=== PATIENT | female | born 1975 | race Caucasian/White ===

== ENCOUNTER 2019-03-20 21:13 | Observation (INO) | payer OTHER ==
[2019-03-20] MEDS ORDERED: SODIUM CHLORIDE 0.9% 1,000 ML IV STA (21:22)
--- NOTE | 2019-03-20 21:23 | ED ---
Chest Pain HPI - General Chief Complaint: Chest Pain Stated Complaint: chest pain Time Seen by Provider: 03/20/19 21:22 Source: patient, RN notes reviewed, old records reviewed Mode of arrival: ambulatory Limitations: no limitations - History of Present Illness Initial Comments: This is a 43-year-old female here for evaluation she herself is no medical history is a nonsmoker, no chest pain chest pain throughout the course of the day left-sided rating to her back severe and tingling down both arms. Patient has strong family history of heart disease with particularly on the age of both her parents. Patient denying any shortness of breath diaphoresis. No other sniffing complaints, physical recent travel history to the [facility]. MD Complaint: chest pain -: hour(s) Onset: during rest, during exertion Pain Location: left chest Pain Radiation: back Severity: moderate Severity scale (1-10): 4 Quality: sharp Consistency: constant Improves With: nothing Worsens With: nothing Anginal Symptoms: nausea, vomiting Treatments Prior to Arrival: none - Related Data Home Medications Medication Instructions Recorded Confirmed DULoxetine HCL [Cymbalta] 60 mg PO HS 11/29/14 11/29/14 Norethindrone-E.estradiol-Iron 1 tab PO DAILY 11/29/14 11/29/14 [Loestrin Fe 1.5-30 Tablet] Omeprazole [PriLOSEC] 1 PO HS 11/29/14 11/29/14 Pramipexole [Mirapex] 0.5 mg PO HS 11/29/14 11/29/14 Previous Rx's Medication Instructions Recorded HYDROcodone/APAP 5-325MG [[place] 5] 1 - 2 each PO Q6HR PRN #20 tab 11/30/14 Allergies Allergy/AdvReac Type Severity Reaction Status Date / Time morphine Allergy Unknown Verified 03/20/19 21:19 Review of Systems ROS Statement: Those systems with pertinent positive or pertinent negative responses have been documented in the HPI. ROS Other: All systems not noted in ROS Statement are negative. EKG Findings - EKG Comments: EKG Findings:: EKG shows sinus tachycardia rate of 109, NH 160, NH 84, QRS 449 Past Medical History Past Medical History: No Reported History, Seizure Disorder Additional Past Medical History / Comment(s): TWENTY THREE YEARS AGO, DUING History of Any Multi-Drug Resistant Organisms: None Reported Past Surgical History: No Surgical Hx Reported, Tonsillectomy Additional Past Surgical History / Comment(s): KIDNEY STONES Past Anesthesia/Blood Transfusion Reactions: Motion Sickness, Postoperative Nausea & Vomiting (PONV) Past Psychological History: No Psychological Hx Reported Smoking Status: Never smoker Past Alcohol Use History: Occasional Past Drug Use History: None Reported - Past Family History Mother Family Medical History: Coronary Artery Disease (CAD), Deep Vein Thrombosis (DVT), Hypertension, Myocardial Infarction (ND) General Exam Limitations: no limitations General appearance: alert, in no apparent distress, anxious Head exam: Present: atraumatic, normocephalic, normal inspection Eye exam: Present: normal appearance, PERRL, EOMI. Absent: scleral icterus, conjunctival injection, periorbital swelling ENT exam: Present: normal exam, mucous membranes moist Neck exam: Present: normal inspection. Absent: tenderness, meningismus, lymphadenopathy Respiratory exam: Present: normal lung sounds bilaterally. Absent: respiratory distress, wheezes, rales, rhonchi, stridor Cardiovascular Exam: Present: normal rhythm, tachycardia, normal heart sounds. Absent: systolic murmur, diastolic murmur, rubs, gallop, clicks GI/Abdominal exam: Present: soft, normal bowel sounds. Absent: distended, tenderness, guarding, rebound, rigid Extremities exam: Present: normal inspection, full ROM, normal capillary refill. Absent: tenderness, pedal edema, joint swelling, calf tenderness Back exam: Present: normal inspection Neurological exam: Present: alert, oriented X3, CN II-XII intact Psychiatric exam: Present: normal affect, normal mood Skin exam: Present: warm, dry, intact, normal color. Absent: rash Course Vital Signs 03/20/19 03/20/19 21:17 22:19 Temperature 98.8 F Pulse Rate 105 H 101 H Respiratory 20 20 Rate Blood Pressure 154/93 102/88 O2 Sat by Pulse 96 98 Oximetry - Reevaluation(s) Reevaluation #1: 03/20/19 23:01 Medical records reviewed Reevaluation #2: 03/20/19 23:01 Still chest pain currently - Consultations Consultation #1: Spoke with Dr. Carrillo, agreeable for evaluation Chest Pain MDM - MDM 43 female to the ED w CP , persistent chest pain here in the ER requiring Dilaudid. Strong family history of heart disease with mother with ND at age 38. No prior cardiac evaluation patient be admitted for cardiac evaluation and treatment, CT is negative for PE Critical Care Time Critical Care Time: Yes Total Critical Care Time: 31 Disposition Clinical Impression: Chest pain Disposition: ADMITTED IP TO THIS HOSP Condition: Undetermined Instructions (If sedation given, give patient instructions): Chest Pain (ED) Is patient prescribed a controlled substance at d/c from ED?: No Referrals: Nonstaff,Physician [Primary Care Provider] - 1-2 days
[2019-03-20 21:49] LABS: Basophils % (A) 0 %; Eosinophils # (A) 0.2 k/uL (0-0.7); Eosinophils % (A) 1 %; HCT 40.2 % (34.0-46.0); Lymphocytes # (A) 2.8 k/uL (1.0-4.8); Lymphocytes % (A) 18 %; MCH 26.7 pg (25.0-35.0); MCHC 32.2 g/dL (31.0-37.0); MCV 82.8 fL (80.0-100.0); Mean Platelet Volume 6.5; Monocytes # (A) 0.6 k/uL (0-1.0); Monocytes % (A) 4 %; Neutrophils # (A) 11.2 k/uL (1.3-7.7); Neutrophils % (A) 74 %; Platelet Count 269 k/uL (150-450); RBC 4.86 m/uL (3.80-5.40); RDW 14.5 % (11.5-15.5); WBC 15.2 k/uL (3.8-10.6)
[2019-03-20 22:03] LABS: D-Dimer 0.42 mg/L FEU (<0.60); INR 0.9 (<1.2); Partial Thromboplastin Time 23.4 sec (22.0-30.0); Prothrombin Time 9.4 sec (9.0-12.0)
[2019-03-20 22:04] LABS: ALT 24 U/L (9-52); AST 18 U/L (14-36); African American GFR (CKD) >90 (>60 ml/min/1.73 sqM); Albumin 4.3 g/dL (3.5-5.0); Alkaline Phosphatase 92 U/L (38-126); Anion Gap 7 mmol/L; Blood Urea Nitrogen 16 mg/dL (7-17); Calcium 10.9 mg/dL (8.4-10.2); Carbon Dioxide 30 mmol/L (22-30); Chloride 101 mmol/L (98-107); Creatine Kinase 32 U/L (30-135); Glucose 122 mg/dL (74-99); Magnesium 1.9 mg/dL (1.6-2.3); Non-African American GFR(CKD) >90 (>60 ml/min/1.73 sqM); Potassium 4.5 mmol/L (3.5-5.1); Sodium 138 mmol/L (137-145); Total Bilirubin 0.4 mg/dL (0.2-1.3); Total Protein 7.2 g/dL (6.3-8.2)
--- NOTE | 2019-03-20 22:30 | CT ---
EXAMINATION TYPE: CT angio chest DATE OF EXAM: 03/20/2019 COMPARISON: None HISTORY: chest pain radiating posteriorly and into both arms. CT DLP: 574.8 mGycm Automated exposure control for dose reduction was used. CONTRAST: Performed with IV Contrast, patient injected with 100 mL of Isovue 370. Multiple axial sections were obtained from the thoracic inlet to the diaphragm with intravenous contr ast. There are 3-D post processed images. FINDINGS: There is no pleural effusion. There is no pericardial effusion. Heart size is normal. The lungs are c lear of infiltrate. There is no evidence of a pulmonary mass. There is no mediastinal adenopathy. There are no hilar masses. There is normal contrast opacification of the pulmonary arteries. There are no filling defects. Thoracic aorta is intact. There is no sign of aneurysm or dissection. Ascending aorta measures 3.3 cm. The bony thorax is intact. IMPRESSION: Normal exam. No evidence of pulmonary embolism.
[2019-03-20] MEDS ORDERED: ASPIRIN 81 MG PO STA (22:58)
[2019-03-20] MEDS ORDERED: HEPARIN SODIUM,PORCINE 5,000 UNIT/ML 1 ML VIAL IV ONE (22:58)
[2019-03-20] MEDS ORDERED: HEPARIN SODIUM,PORCINE 5,000 UNIT/ML 1 ML VIAL IV PRN (22:58)
[2019-03-20] MEDS ORDERED: HEPARIN SOD,PORK IN 0.45% NACL 25,000 UNIT in 0.45% NACL 1 250ML.BAG IV SCH (23:00)
[2019-03-20] MEDS ORDERED: SODIUM CHLORIDE 0.9% 1,000 ML IV SCH (23:00)
[2019-03-20] MEDS: NITROGLYCERIN SL TABS 0.4 MG TAB SUBLINGUAL PRN ×3 (23:20→23:39)
[2019-03-21 00:12] VITALS: RESP 18
[2019-03-21] MEDS ORDERED: KETOROLAC 30 MG/ML 1 ML VIAL IVP STA (00:33)
[2019-03-21] MEDS ORDERED: MAG HYDROX/AL HYDROX/SIMETH 30 ML CUP PO PRN (02:23)
[2019-03-21] MEDS ORDERED: ALPRAZolam 0.5 MG TAB PO STA (02:23)
--- NOTE | 2019-03-21 02:31 | P.HPIM ---
History of Present Illness H&P Date: 03/21/19 Chief Complaint: chest pain 43-year-old female with history of GERD Patient comes in today with 1 day history of chest pain started this morning she does not recall any precipitating factor. Described it as central chest pain sharp in nature and radiates straight to the back between her shoulder blades associated with some nausea and slight palpitations but no vomiting no shortness of breath no fevers no chills no sweating this has never happened before she denies any precipitating or aggravating factors she described the pain as sharp 9 out of 10 in severity and now is down to 5 out of 10 in severity this has never happened before. Patient reports some coughing that's chronic in nature been going on for 4 months now. She reports long history of GERD she had multiple EGDs and colonoscopy in the past no significant abnormalities she reports history of polyp. She reports strong history of premature CAD in her family and in the ED CT image of the chest was performed and was negative for any PE EKG showed sinus tachycardia Slightly elevated white count Review of Systems Pertinent positives as noted in HPI. All other systems were reviewed and are negative Past Medical History Past Medical History: Seizure Disorder Additional Past Medical History / Comment(s): TWENTY THREE YEARS AGO, DUING History of Any Multi-Drug Resistant Organisms: None Reported Past Surgical History: Cholecystectomy, Tonsillectomy Additional Past Surgical History / Comment(s): KIDNEY STONES Past Anesthesia/Blood Transfusion Reactions: Motion Sickness, Postoperative Nausea & Vomiting (PONV) Smoking Status: Never smoker - Past Family History Father Family Medical History: Myocardial Infarction ([place]) Additional Family Medical History / Comment(s): Sepsis Sister(s) Family Medical History: Congestive Heart Failure (CHF) Brother(s) Family Medical History: Myocardial Infarction ([place]) Mother Family Medical History: Coronary Artery Disease (CAD), Diabetes Mellitus, Deep Vein Thrombosis (DVT), Hypertension, Myocardial Infarction ([place]) Additional Family Medical History / Comment(s): Heart disease since 38 Medications and Allergies Home Medications Medication Instructions Recorded Confirmed Type Omeprazole [PriLOSEC] 20 mg PO HS 11/29/14 03/21/19 History Aspirin EC [Ecotrin] 325 mg PO DAILY PRN 03/20/19 03/21/19 History Norethindrone-E.estradiol-Iron 1 tab PO HS 03/20/19 03/21/19 History [Junel Fe 1 mg-20 Mcg Tablet] Pramipexole Di-HCl [Pramipexole ER] 1.5 mg PO HS 03/20/19 03/21/19 History buPROPion XL [Wellbutrin Xl] 300 mg PO DAILY 03/20/19 03/21/19 History Allergies Allergy/AdvReac Type Severity Reaction Status Date / Time morphine AdvReac Severe Nausea & Verified 03/21/19 00:09 Vomiting Physical Exam Vitals: Vital Signs Temp Pulse Pulse Resp BP BP Pulse Ox 03/21/19 00:00 98.3 F 102 H 18 150/93 96 03/20/19 23:45 98.7 F 99 20 134/72 99 03/20/19 23:39 92 20 150/74 99 03/20/19 23:26 94 20 133/80 99 03/20/19 22:19 101 H 20 102/88 98 03/20/19 21:17 98.8 F 105 H 20 154/93 96 Intake and Output 03/20/19 03/20/19 03/21/19 14:59 22:59 06:59 Other: # Voids 1 Weight 90.718 kg 90.718 kg Constitutional: No acute distress, conversant, pleasant Eyes: Anicteric sclerae, moist conjunctiva, no lid-lag Pupils equal round reactive to light ENMT: NC/AT Oropharynx clear, no erythema, exudates Neck: Supple, FROM, no masses, or JVD No carotid bruits No thyromegaly Lungs: Clear to auscultation Clear to percussion Normal respiratory effort, no accessory muscle use Cardiovascular: Heart regular in rate and rhythm, No murmurs, gallops, or rubs No peripheral edema Abdominal: Soft, slight epigastric discomfort with deep palpation , no guarding, rebound or rigidity Abdomen moving with respiration Normoactive bowel sounds No hepatomegaly, No splenomegaly No palpable mass No abdominal wall hernia noted Skin: Normal temperature, tone, texture, turgor No induration No subcutaneous nodules No rash, lesions No ulcers Extremities: No digital cyanosis No clubbing Pedal pulses intact and symmetrical Radial pulses intact and symmetrical No calf tenderness Psychiatric: Alert and oriented to person, place and time Appropriate affect fair judgment Neuro Muscles Strength 5/5 in all 4 extremities Sensation to light touch grossly present throughout Cranial nerves II-XII grossly intact No focal sensory deficits Lymphatics: no palpable cervical or supraclavicular , or inguinal lymph nodes Results CBC & Chem 7: 03/20/19 21:37 03/20/19 21:37 Labs: Abnormal Lab Results - Last 24 Hours (Table) 03/20/19 03/20/19 Range/Units 21:37 21:37 WBC 15.2 H (3.8-10.6) k/uL Neutrophils # 11.2 H (1.3-7.7) k/uL Glucose 122 H (74-99) mg/dL Calcium 10.9 H (8.4-10.2) mg/dL Thrombosis Risk Factor Assmnt - Choose All That Apply Each Factor Represents 1 point: Age 41-60 years Thrombosis Risk Factor Assessment Total Risk Factor Score: 1 Thrombosis Risk Factor Assessment Level: Low Risk Assessment and Plan Assessment: 43-year-old female with no significant past medical history and however with strong family history of premature CAD comes in with chest pain admitted under observation with anticipated length of stay less than 2 midnight to rule out acute coronary syndrome Plan: atypical chest pain rule out ACS nitro heparin gtt aspirin statin cardio consult trend cardiac enzymes cardiac tele GERD continue home meds maalox CODE STATUS:*Full code Discussed with: Patient, ER, RN Anticipated length of stay less than [address]: Home A total of 60 minutes was spent on the care of this complex patient more than 50% of the time was spent in counseling and care coordination.
[2019-03-21 06:01] LABS: Mean Platelet Volume 6.4; Platelet Count 221 k/uL (150-450)
[2019-03-21 06:12] LABS: Cholesterol 179 mg/dL (<200); HDL Cholesterol 36 mg/dL (40-60)
[2019-03-21 06:24] LABS: Triglycerides 845 mg/dL (<150)
[2019-03-21] MEDS ORDERED: PANTOPRAZOLE 40 MG TABLET PO SCH (07:30)
[2019-03-21 08:07] LABS: HCT 32.6 % (34.0-46.0); HGB 10.7 gm/dL (11.4-16.0); Hypochromasia Slight; MCH 27.5 pg (25.0-35.0); MCHC 32.9 g/dL (31.0-37.0); MCV 83.6 fL (80.0-100.0); Mean Platelet Volume 8.4; Platelet Count 221 k/uL (150-450); RDW 14.2 % (11.5-15.5); WBC 9.8 k/uL (3.8-10.6)
[2019-03-21 08:21] LABS: African American GFR (CKD) >90 (>60 ml/min/1.73 sqM); Anion Gap 7 mmol/L; Blood Urea Nitrogen 15 mg/dL (7-17); Calcium 9.6 mg/dL (8.4-10.2); Carbon Dioxide 26 mmol/L (22-30); Chloride 106 mmol/L (98-107); Glucose 110 mg/dL (74-99); Non-African American GFR(CKD) >90 (>60 ml/min/1.73 sqM); Potassium 4.2 mmol/L (3.5-5.1); Sodium 139 mmol/L (137-145)
[2019-03-21] MEDS ORDERED: ATORVASTATIN 80 MG TAB PO SCH (09:00)
[2019-03-21] MEDS ORDERED: METOPROLOL TARTRATE 25 MG TAB PO SCH (09:00)
[2019-03-21] MEDS ORDERED: ASPIRIN 325 MG TAB PO SCH (09:00)
[2019-03-21] MEDS ORDERED: buPROPion XL 300 MG TAB.ER.24H PO SCH (09:00)
--- NOTE | 2019-03-21 10:11 | P.CRDCN ---
History of Present Illness History of present illness: This is Dr. Lees dictating a consult on this patient The patient was interviewed and examined by me IMPRESSION / ASSESSMENT: Patient presented with chest discomfort lasting several hours with radiation through to the back with spontaneous resolution 2 normal cardiac enzymes Serial ECGs normal No evidence for pulmonary embolism thoracic aorta is intact without any sign of aneurysm or dissection and measures 3 x 3 cm, ascending portion Increased BMI Nondiabetic, no hypertension, denies dyslipidemia but triglycerides are 845 Glucose elevated Strong family history of premature coronary artery disease in the mother with coronary artery bypass grafting at age 38 but she was a heavy smoker Patient is a never smoker Triglycerides 845 PLAN: Consider cardiac enzymes if this is normal. Heparin Annulate in the hallways If patient is stable she may go home and follow-up with me next week HPI Patient woke up with chest discomfort which is fairly constant loss of several hours with normal cardiac enzymes normal ECGs Spontaneous resolution Nitroglycerin give her a headache ROS: No fever chills or rigors, no cough, phlegm or expectoration, no nausea, vomiting or diarrhea, no hematuria, dysuria, no musculoskeletal complaints, no strokes or seizures, no skin lesions. EXAMINATION: Blood pressure 117/67 mmHg respirations normal pulse rate in the 80s, afebrile Temperature 97.7F Normal breath sounds no rhonchi no crackles Breath sounds are clear no rhonchi no crackles Heart sounds are normal normal S1 normal S2 Extremities warm no edema Abdomen soft nontender REVIEW OF LABS, ECG & MEDICAL DATA hemoglobin 13 and then subsequently 10.7 2 normal cardiac enzymes, elevated triglyceride of 845 Past Medical History Past Medical History: Seizure Disorder Additional Past Medical History / Comment(s): TWENTY THREE YEARS AGO, DUING History of Any Multi-Drug Resistant Organisms: None Reported Past Surgical History: Cholecystectomy, Tonsillectomy Additional Past Surgical History / Comment(s): KIDNEY STONES Past Anesthesia/Blood Transfusion Reactions: Motion Sickness, Postoperative Nausea & Vomiting (PONV) Smoking Status: Never smoker - Past Family History Father Family Medical History: Myocardial Infarction ([place]) Additional Family Medical History / Comment(s): Sepsis Sister(s) Family Medical History: Congestive Heart Failure (CHF) Brother(s) Family Medical History: Myocardial Infarction ([place]) Mother Family Medical History: Coronary Artery Disease (CAD), Diabetes Mellitus, Deep Vein Thrombosis (DVT), Hypertension, Myocardial Infarction ([place]) Additional Family Medical History / Comment(s): Heart disease since 38 Medications and Allergies Home Medications Medication Instructions Recorded Confirmed Type Omeprazole [PriLOSEC] 20 mg PO HS 11/29/14 03/21/19 History Aspirin EC [Ecotrin] 325 mg PO DAILY PRN 03/20/19 03/21/19 History Norethindrone-E.estradiol-Iron 1 tab PO HS 03/20/19 03/21/19 History [Junel Fe 1 mg-20 Mcg Tablet] Pramipexole Di-HCl [Pramipexole ER] 1.5 mg PO HS 03/20/19 03/21/19 History buPROPion XL [Wellbutrin Xl] 300 mg PO DAILY 03/20/19 03/21/19 History Allergies Allergy/AdvReac Type Severity Reaction Status Date / Time morphine AdvReac Severe Nausea & Verified 03/21/19 00:09 Vomiting Physical Exam Vitals: Vital Signs Temp Pulse Pulse Resp BP BP Pulse Ox 03/21/19 08:00 85 18 03/21/19 07:10 97.7 F 85 18 108/71 95 03/21/19 04:00 98.3 F 87 18 117/67 93 L 03/21/19 03:12 18 03/21/19 00:00 98.3 F 102 H 18 150/93 96 03/20/19 23:45 98.7 F 99 20 134/72 99 03/20/19 23:39 92 20 150/74 99 03/20/19 23:26 94 20 133/80 99 03/20/19 22:19 101 H 20 102/88 98 03/20/19 21:17 98.8 F 105 H 20 154/93 96 Intake and Output 03/20/19 03/21/19 03/21/19 22:59 06:59 14:59 Intake Total 73.179 Balance 73.179 Intake: Intake, IV Titration 73.179 Amount Heparin Sod,Pork in 0.45% 73.179 NaCl 25,000 unit In 0.45 % NaCl 1 250ml.bag @ 11 UNITS/KG/HR 9.979 mls/hr IV .Q24H [facility] Rx#: [id number] Other: # Voids 1 Weight 90.718 kg 90.718 kg Results 03/21/19 05:41 03/21/19 05:37 Cardiac Enzymes 03/20/19 03/20/19 03/21/19 Range/Units 21:37 21:37 03:57 AST 18 (14-36) U/L Troponin I <0.012 <0.012 (0.000-0.034) ng/mL Coagulation 03/20/19 03/21/19 Range/Units 21:37 05:41 PT 9.4 (9.0-12.0) sec APTT 23.4 26.4 (22.0-30.0) sec Lipids 03/21/19 Range/Units 05:41 Triglycerides 845 H (<150) mg/dL Cholesterol 179 (<200) mg/dL HDL Cholesterol 36 L (40-60) mg/dL CBC 03/20/19 03/21/19 03/21/19 Range/Units 21:37 05:37 05:41 WBC 15.2 H 9.8 (3.8-10.6) k/uL RBC 4.86 3.90 (3.80-5.40) m/uL Hgb 13.0 10.7 L (11.4-16.0) gm/dL Hct 40.2 32.6 L (34.0-46.0) % Plt Count 269 221 221 (150-450) k/uL Comprehensive Metabolic Panel 03/20/19 03/21/19 Range/Units 21:37 05:37 Sodium 138 139 (137-145) mmol/L Potassium 4.5 4.2 (3.5-5.1) mmol/L Chloride 101 106 (98-107) mmol/L Carbon Dioxide 30 26 (22-30) mmol/L BUN 16 15 (7-17) mg/dL Creatinine 0.78 0.73 (0.52-1.04) mg/dL Glucose 122 H 110 H (74-99) mg/dL Calcium 10.9 H 9.6 (8.4-10.2) mg/dL AST 18 (14-36) U/L ALT 24 (9-52) U/L Alkaline Phosphatase 92 (38-126) U/L Total Protein 7.2 (6.3-8.2) g/dL Albumin 4.3 (3.5-5.0) g/dL Current Medications Generic Name Dose Route Start Last Admin Trade Name Freq PRN Reason Stop Dose Admin Al Hydroxide/Mg Hydroxide 30 ml 03/21/19 02:23 Maalox PO Q4HR PRN GI Upset Aspirin 325 mg 03/21/19 09:00 Aspirin PO DAILY [facility] Atorvastatin Calcium 80 mg 03/21/19 09:00 Lipitor PO DAILY [facility] Bupropion HCl 300 mg 03/21/19 09:00 Wellbutrin Xl PO DAILY [facility] Heparin Sodium (Porcine) 0 unit 03/20/19 22:58 Heparin IV Q6HR PRN Low PTT Protocol Sodium Chloride 1,000 mls @ 100 mls/hr 03/20/19 23:00 03/20/19 23:08 Saline 0.9% IV 100 mls/hr .Q10H [facility]LE[facility] Administration Heparin Sodium/Sodium Chloride 250 mls @ 9.979 mls/hr 03/20/19 23:00 03/21/19 06:28 25,000 unit/ Sodium Chloride IV 14 units/kg/hr .Q24H ALEJA 12.701 mls/hr Titration Protocol 11 UNITS/KG/HR Metoprolol Tartrate 25 mg 03/21/19 09:00 Lopressor PO BID [facility] Nitroglycerin 0.4 mg 03/20/19 22:58 03/20/19 23:39 Nitrostat SUBLINGUAL 0.4 mg Q5M PRN Administration Chest Pain Pantoprazole Sodium 40 mg 03/21/19 07:30 Protonix PO AC-BRKFST [facility] Intake and Output 03/20/19 03/21/19 03/21/19 22:59 06:59 14:59 Intake Total 73.179 Balance 73.179 Intake: Intake, IV Titration 73.179 Amount Heparin Sod,Pork in 0.45% 73.179 NaCl 25,000 unit In 0.45 % NaCl 1 250ml.bag @ 11 UNITS/KG/HR 9.979 mls/hr IV .Q24H [facility] Rx#: [id number] Other: # Voids 1 Weight 90.718 kg 90.718 kg 03/21/19 05:41 03/21/19 05:37
[2019-03-21 12:00] VITALS: BP 116/72; PULSE 92; TEMP 98.6
[2019-03-21 12:28] LABS: HCT 35.1 % (34.0-46.0); HGB 11.5 gm/dL (11.4-16.0); MCH 27.7 pg (25.0-35.0); MCHC 32.9 g/dL (31.0-37.0); MCV 84.1 fL (80.0-100.0); Mean Platelet Volume 6.4; Platelet Count 221 k/uL (150-450); RBC 4.17 m/uL (3.80-5.40); RDW 14.5 % (11.5-15.5); WBC 7.5 k/uL (3.8-10.6)
[2019-03-21 12:36] LABS: Cholesterol 190 mg/dL (<200); HDL Cholesterol 35 mg/dL (40-60)
[2019-03-21 13:28] LABS: Triglycerides 959 mg/dL (<150)
--- NOTE | 2019-03-21 14:55 | P.DS ---
Providers Date of admission: 03/20/19 23:00 Expected date of discharge: 03/21/19 Attending physician: Sunitha Carvajal MD Consults: 03/20/19 22:59 Consult Physician Urgent Consulting Provider: Ricardo Sen Consult Reason/Comments: cp Do you want consulting provider notified?: Yes Primary care physician: Physician Nonstaff Hospital Course: Discharge Diagnosis: Atypical chest pain Hypertriglyceridemia Gerd Chronic cough Obesity Hospital Course: Patient is a 43-year-old female with a past medical history of seizure disorder, GERD, and prior kidney stone who presented to the emergency department with complaints of chest pain. In the ER she underwent an extensive evaluation. Vital signs were all normal on arrival. Troponin was normal. EKG unremarkable. CTA did not demonstrate any signs of pulmonary embolism or aortic dissection. She was placed in observation for chest pain. Troponins remained negative. She remained chest pain-free. She was seen by cardiology who recommended outpatient stress testing. Her cholesterol profile came back with hypertriglyceridemia triglyceride levels in the 800s. This was repeated and confirmed. Screening a.m. fasting blood sugar was less than 126 which did not show evidence of diabetes. Hemoglobin A1c was ordered and is pending on discharge. She also complains of chronic cough for 4 months that is unimproved with [id number] medications. She does report a history of severe GERD including esophageal ulcers. She's been on Prilosec for many years and has had multiple scopes by ENT secondary to her acid reflux. She is determined stable for discharge home. She will do a trial of Protonix twice daily to see if this helps with her chronic cough. She'll follow up with the museum security chief on 03/26 for outpatient stress testing. Patient seen and examined at bedside. Currently chest pain-free. Still having a chronic cough. No shortness of breath. Vital signs reviewed and stable. General: non toxic, no distress, appears at stated age Derm: warm, dry Head: atraumatic, normocephalic, symmetric Eyes: EOMI, no lid lag, anicteric sclera Mouth: no lip lesion, mucus membranes moist Cardiovascular: S1S2 reg, no murmur, positive posterior tibial pulse bilateral, Lungs: CTA bilateral, no rhonchi, no rales , no accessory muscle use Abdominal: soft, nontender to palpation, no guarding, no appreciable organomegaly Ext: no gross muscle atrophy, no edema, no contractures Neuro: CN II-XI grossly intact, no focal neuro deficits Psych: Alert, oriented, appropriate affect A total of 25 minutes of time were spent preparing this complex discharge summary . Patient Condition at Discharge: Stable Plan - Discharge Summary New Discharge Prescriptions: New Aspirin 81 mg PO DAILY chew Atorvastatin [Lipitor] 80 mg PO DAILY #30 tab Pantoprazole [Protonix] 40 mg PO AC-BID #60 tablet.dr Cole Pramipexole Di-HCl [Pramipexole ER] 1.5 mg PO HS Norethindrone-E.estradiol-Iron [Junel Fe 1 mg-20 Mcg Tablet] 1 tab PO HS buPROPion XL [Wellbutrin XL] 300 mg PO DAILY Discontinued Omeprazole [PriLOSEC] 20 mg PO HS Aspirin EC [Ecotrin] 325 mg PO DAILY PRN PRN Reason: Pain Discharge Medication List Norethindrone-E.estradiol-Iron [Junel Fe 1 mg-20 Mcg Tablet] 1 tab PO HS 03/20/19 [History] Pramipexole Di-HCl [Pramipexole ER] 1.5 mg PO HS 03/20/19 [History] buPROPion XL [Wellbutrin XL] 300 mg PO DAILY 03/20/19 [History] Aspirin 81 mg PO DAILY chew 03/21/19 [Rx] Atorvastatin [Lipitor] 80 mg PO DAILY #30 tab 03/21/19 [Rx] Pantoprazole [Protonix] 40 mg PO AC-BID #60 tablet. 03/21/19 [Rx] Follow up Appointment(s)/Referral(s): Frederick Lees MD [STAFF PHYSICIAN] - 1 Week (Follow Dr. Lees/Hanane Liu on March 26, 9:30 AM) Nonstaff,Physician [Primary Care Provider] - 1-2 days Patient Instructions/Handouts: Chest Pain (ED)
[2019-03-21 18:41] LABS: Hemoglobin A1C 5.5 % (4.0-6.0)
[2019-03-22] MEDS ORDERED: ASPIRIN 81 MG PO SCH (09:00)
== END 2019-03-21 15:31 | disposition home or self-care (01) ==
LOC: EC 21:13 → 1SOBS 23:00
PROVIDERS: ADMIT Internal Medicine; ATTEND Internal Medicine
DX: R07.89 Other chest pain (principal); E78.1 Pure hyperglyceridemia; K21.9 Gastro-esophageal reflux disease without esophagitis; R05 Cough; E66.9 Obesity, unspecified; R00.0 Tachycardia, unspecified; Z68.34 Body mass index [BMI] 34.0-34.9, adult; Z79.899 Other long term (current) drug therapy; Z79.890 Hormone replacement therapy; Z88.5 Allergy status to narcotic agent; Z86.69 Personal history of other diseases of the nervous system and sense organs; Z90.89 Acquired absence of other organs; Z90.49 Acquired absence of other specified parts of digestive tract; Z87.442 Personal history of urinary calculi; Z87.898 Personal history of other specified conditions; Z91.89 Other specified personal risk factors, not elsewhere classified; Z87.19 Personal history of other diseases of the digestive system; Z82.49 Family history of ischemic heart disease and other diseases of the circulatory system; Z83.1 Family history of other infectious and parasitic diseases; Z83.3 Family history of diabetes mellitus
CPT/HCPCS: 93005 ×2; 96366; 96375; 96376; 96361; 96365; 99291; 36415; 85379; 83880; 80061; 80053; 80048; 82550; 83690; 83735; 84484 ×2; 85025; 85027; 85049; 85610; 85730 ×2; 83036; 71275; G0378 ×2; J1644 ×2; J1885; Q9967